=== PATIENT | male | born 1970 | race Caucasian/White ===

== ENCOUNTER → 2017-02-19 | Outpatient (REF) | payer OTHER | LOC: M SFHCPLAZ 10:22 | PROVIDERS: ATTEND Family Medicine | DX: E78.5 Hyperlipidemia, unspecified (principal); R73.03 Prediabetes ==

== ENCOUNTER → 2018-03-13 | Outpatient (REF) | payer OTHER | LOC: M SFHCPLAZ 09:27 | PROVIDERS: ATTEND Family Medicine | DX: R73.03 Prediabetes (principal) ==

== ENCOUNTER → 2019-04-07 | Outpatient (REF) | payer OTHER ==
[2019-04-07 12:29] LABS: CHOLESTEROL RISK RATIO 5.6 (<5)
[2019-04-07 13:57] LABS: HEMOGLOBIN A1c 5.9 %
== END ==
LOC: M SFHCPLAZ 10:23
PROVIDERS: ATTEND Family Medicine
DX: R73.03 Prediabetes (principal); E78.5 Hyperlipidemia, unspecified

== ENCOUNTER → 2019-05-05 | Outpatient (REF) | payer OTHER | LOC: M SFHCPLAZ 09:49 | PROVIDERS: ATTEND Family Medicine | DX: E78.5 Hyperlipidemia, unspecified (principal); E66.9 Obesity, unspecified ==

== ENCOUNTER → 2020-04-04 | Outpatient (REF) | payer OTHER ==
[2020-04-04 11:00] LABS: HEMOGLOBIN A1c 5.3 %
[2020-04-04 11:04] LABS: CHOLESTEROL RISK RATIO 4.064 (<5)
== END ==
LOC: M SFHCPLAZ 08:29
PROVIDERS: ATTEND Family Medicine
DX: E78.2 Mixed hyperlipidemia (principal); R73.03 Prediabetes

== ENCOUNTER → 2022-01-07 | Outpatient (REF) | payer OTHER ==
[2022-01-07 21:22] LABS: APPEARANCE, URINE MANUAL CLEAR (CLEAR); COLOR, URINE MANUAL YELLOW (YELLOW)
[2022-01-07 21:23] LABS: BILIRUBIN, URINE MANUAL NEGATIVE (NEGATIVE); BLOOD URINE MANUAL NEGATIVE (NEGATIVE); GLUCOSE, URINE (UA) MANUAL NEGATIVE (NEGATIVE); KETONE, URINE MANUAL 1+ mg/dL (NEGATIVE); NITRITE, URINE MANUAL NEGATIVE (NEGATIVE); PH,URINE MAN 5.5 UNITS (5.0 - 7.0); PROTEIN, URINE MANUAL NEGATIVE (NEGATIVE); UROBILINOGEN, URINE MANUAL NORMAL (NORMAL)
[2022-01-07 22:39] LABS: LEUKOCYTE ESTERASE, URINE MAN TRACE (NEGATIVE)
[2022-01-07 22:41] LABS: BACTERIA, URINE SMALL AMOUNT; HYALINE CAST, URINE NONE SEEN /lpf (0-1); MUCUS, URINE SMALL AMOUNT (NEGATIVE); SQUAMOUS EPITHELIAL CELL URINE SMALL AMOUNT /hpf (SMALL AMT); WBC, URINE 0-1 /hpf (0-3)
== END ==
LOC: M LAB REF 21:10
PROVIDERS: ATTEND Physician Assistant Medical
DX: N39.0 Urinary tract infection, site not specified (principal)

== ENCOUNTER → 2022-01-28 | Outpatient (REF) | payer OTHER ==
[2022-01-28 16:40] LABS: APPEARANCE, URINE MANUAL CLEAR (CLEAR); COLOR, URINE MANUAL YELLOW (YELLOW); SPECIFIC GRAVITY,URINE MANUAL 1.015 (1.002-1.035)
[2022-01-28 16:47] LABS: BILIRUBIN, URINE MANUAL NEGATIVE (NEGATIVE); BLOOD URINE MANUAL NEGATIVE (NEGATIVE); GLUCOSE, URINE (UA) MANUAL NEGATIVE (NEGATIVE); KETONE, URINE MANUAL NEGATIVE (NEGATIVE); LEUKOCYTE ESTERASE, URINE MAN NEGATIVE (NEGATIVE); NITRITE, URINE MANUAL NEGATIVE (NEGATIVE); PROTEIN, URINE MANUAL NEGATIVE (NEGATIVE); UROBILINOGEN, URINE MANUAL NORMAL (NORMAL)
== END ==
LOC: M LAB REF 16:15
PROVIDERS: ATTEND Physician Assistant Medical
DX: N39.0 Urinary tract infection, site not specified (principal)

== ENCOUNTER → 2022-03-05 | Outpatient (REF) | payer OTHER ==
[2022-03-05 18:35] LABS: APPEARANCE, URINE MANUAL CLEAR (CLEAR); COLOR, URINE MANUAL YELLOW (YELLOW)
[2022-03-05 18:37] LABS: BILIRUBIN, URINE MANUAL NEGATIVE (NEGATIVE); BLOOD URINE MANUAL NEGATIVE (NEGATIVE); GLUCOSE, URINE (UA) MANUAL NEGATIVE (NEGATIVE); KETONE, URINE MANUAL NEGATIVE (NEGATIVE); LEUKOCYTE ESTERASE, URINE MAN NEGATIVE (NEGATIVE); NITRITE, URINE MANUAL NEGATIVE (NEGATIVE); PROTEIN, URINE MANUAL NEGATIVE (NEGATIVE); UROBILINOGEN, URINE MANUAL NORMAL (NORMAL)
== END ==
LOC: M SFHCPLAZ 17:03
PROVIDERS: ATTEND Student in an Organized Health Care Education/Training Program
DX: R30.0 Dysuria (principal)

== ENCOUNTER → 2022-03-05 | Outpatient (REF) | payer OTHER | LOC: M SFHCPLAZ 19:12 | PROVIDERS: ATTEND Family Medicine | DX: E78.5 Hyperlipidemia, unspecified (principal); R30.0 Dysuria; Z53.9 Procedure and treatment not carried out, unspecified reason ==

== ENCOUNTER → 2022-11-07 | Outpatient (REF) | payer OTHER | LOC: M SFHCPLAZ 15:33 | PROVIDERS: ATTEND Student in an Organized Health Care Education/Training Program | DX: Z53.9 Procedure and treatment not carried out, unspecified reason (principal) ==

== ENCOUNTER → 2023-10-21 | Outpatient (CLI) | payer OTHER ==
[2023-10-21 12:42] LABS: BASO % 0.5 % (0.0-1.0); EOS % 0.4 % (0.0-3.0); HEMATOCRIT 44.6 % (42.0-52.0); HEMOGLOBIN 15.7 g/dl (13.5-17.5); LYMPH # 1.3 10^3/uL (1.5-5.0); LYMPH % 22.5 % (24.0-44.0); MEAN CORPUSCULAR HEMOGLOBIN 34.1 pg (27.0-33.0); MEAN CORPUSCULAR HGB CONC 35.2 g/dl (32.0-36.5); MONO # 0.4 10^3/uL (0.0-0.8); MONO % 6.6 % (2.0-8.0); NEUTROPHILS # 3.9 10^3/uL (1.5-8.5); NEUTROPHILS % 69.8 % (36.0-66.0); PLATELET COUNT, AUTOMATED 169 10^3/uL (150-450); WHITE BLOOD COUNT 5.6 10^3/uL (4.0-10.0)
[2023-10-21 12:48] LABS: ALBUMIN 4.4 G/DL (3.2-5.2); ALKALINE PHOSPHATASE 78 U/L (46-116); ALT/SGPT 41 U/L (7.0-40); AST/SGOT 27 U/L (<34); BILIRUBIN,TOTAL 0.6 MG/DL (0.3-1.2); BLOOD UREA NITROGEN 12 MG/DL (9-23); CALCIUM LEVEL 9.8 MG/DL (8.5-10.1); CARBON DIOXIDE LEVEL 30 MMOL/L (20-31); CHLORIDE LEVEL 104 MMOL/L (98-107); CHOLESTEROL LEVEL 210 MG/DL (<200); CHOLESTEROL RISK RATIO 2.87 (<5); CREATININE FOR GFR 0.89 MG/DL (0.70-1.30); GLOMERULAR FILTRATION RATE > 60.0 (>56); GLUCOSE, FASTING 103 MG/DL (60-100); LDL CHOLESTEROL 118.2 MG/DL (<100); POTASSIUM SERUM 4.3 MMOL/L (3.5-5.1); SODIUM LEVEL 139 MMOL/L (136-145); TOTAL PROTEIN 7.5 G/DL (5.7-8.2); TRIGLYCERIDES LEVEL 94 MG/DL (<150)
[2023-10-21 12:50] LABS: FREE T4 1.14 NG/DL (0.89-1.76); THYROID STIMULATING HORMONE 1.568 uIU/ML (0.55-4.78)
[2023-10-21 13:07] LABS: HEMOGLOBIN A1c 5.2 % (4.0-6.0)
[2023-10-21 13:18] LABS: CREATININE, URINE 246.5 MG/DL; MAU/CREAT RATIO 7.3 MCG/MG (0.0-30.0)
== END ==
LOC: M PLALAB 09:32
PROVIDERS: ATTEND Student in an Organized Health Care Education/Training Program
DX: Z00.00 Encounter for general adult medical examination without abnormal findings (principal); R73.03 Prediabetes; R03.0 Elevated blood-pressure reading, without diagnosis of hypertension; E78.5 Hyperlipidemia, unspecified; F41.9 Anxiety disorder, unspecified; Z12.11 Encounter for screening for malignant neoplasm of colon

== ENCOUNTER → 2024-04-29 | Outpatient (REF) | payer OTHER | LOC: M SFHCPLAZ 17:33 | PROVIDERS: ATTEND Family Medicine | DX: L72.0 Epidermal cyst (principal) ==

== ENCOUNTER 2024-12-13 15:49 | Inpatient (IN) | payer OTHER ==
[2024-12-13] MEDS: NS (Normal Saline) 0.9% 1,000 ML IV ONE (16:39)
[2024-12-13 17:10] LABS: BASO # 0.0 10^3/uL (0.0-0.2); BASO % 0.2 % (0.0-1.0); EOS # 0.0 10^3/uL (0.0-0.5); EOS % 0.0 % (0.0-3.0); LYMPH # 0.3 10^3/uL (1.5-5.0); LYMPH % 2.6 % (24.0-44.0); MONO # 0.4 10^3/uL (0.0-0.8); MONO % 4.1 % (2.0-8.0); NEUTROPHILS # 10.1 10^3/uL (1.5-8.5); NEUTROPHILS % 92.8 % (36.0-66.0); PLATELET COUNT, AUTOMATED 124 10^3/uL (150-450)
[2024-12-13 17:19] LABS: CALCIUM LEVEL 9.3 MG/DL (8.5-10.1); CARBON DIOXIDE LEVEL 19 MMOL/L (20-31); CHLORIDE LEVEL 93 MMOL/L (98-107); CK-MB VALUE MASS 1.1 NG/ML (<3.6); CPK CREATINE PHOSPHOKINASE 102 U/L (46-171); CREATININE FOR GFR 0.69 MG/DL (0.70-1.30); GLOMERULAR FILTRATION RATE > 90.0 (>56); MB/CK RELATIVE INDEX 1.07 (< OR =4); POTASSIUM SERUM 3.5 MMOL/L (3.5-5.1); SODIUM LEVEL 132 MMOL/L (136-145)
[2024-12-13] MEDS: ONDANSETRON 4MG 2ML VIAL IV STA (17:23)
[2024-12-13 17:24] LABS: ETHYL ALCOHOL (ETHANOL) < 0.003 % (0.000-0.010)
[2024-12-13] MEDS ORDERED: ATOR1TAB19 PO (17:24)
[2024-12-13] MEDS ORDERED: ZOLO100T PO (17:24)
[2024-12-13] MEDS ORDERED: PANT20TA6 PO (17:24)
[2024-12-13 17:25] LABS: ALT/SGPT 76 U/L (7.0-40); AST/SGOT 104 U/L (<34); MAGNESIUM LEVEL 1.4 MG/DL (1.8-2.4); SALICYLATE LEVEL < 3.0 MG/DL (<30)
[2024-12-13 17:27] LABS: ETHYL ALCOHOL (ETHANOL) < 0.003 % (0.000-0.010)
[2024-12-13 17:43] LABS: AMPHETAMINES LEVEL URINE NEGATIVE (NEGATIVE); BARBITURATES URINE NEGATIVE (NEGATIVE); BENZODIAZEPINES URINE NEGATIVE (NEGATIVE); CANNABINOIDS URINE NEGATIVE (NEGATIVE); COCAINE METABOLITE URINE NEGATIVE (NEGATIVE); METHADONE URINE NEGATIVE (NEGATIVE); OPIATES URINE NEGATIVE (NEGATIVE); PHENCYCLIDINE URINE NEGATIVE (NEGATIVE)
[2024-12-13] MEDS: MAG SULF 1GM/100ML (MAG RUN) 1 GM in IV 1 EA IV ONE (18:04)
[2024-12-13] MEDS ORDERED: ISOVUE-370 76% 100 ML VIAL As Ordered ONE (18:08)
[2024-12-13] MEDS ORDERED: DEXTROSE 50% 50 ML SYRINGE As Ordered ONE (18:21)
[2024-12-13 18:40] LABS: CK-MB VALUE MASS 1.2 NG/ML (<3.6)
[2024-12-13 18:50] LABS: CPK CREATINE PHOSPHOKINASE 96.0 U/L (46-171); MB/CK RELATIVE INDEX 1.25 (< OR =4)
[2024-12-13] MEDS ORDERED: ECOT81TA5 PO (19:29)
[2024-12-13] MEDS ORDERED: HOME MED LIST COMPLETE! XX SCH (19:30)
[2024-12-13 20:20] LABS: INR 0.89
[2024-12-13 20:33] LABS: VITAMIN B12 LEVEL 497.0 PG/ML (211-911)
[2024-12-13] MEDS: LR 1,000 ML IV SCH (20:46)
[2024-12-13] MEDS: THIAMINE 100 MG TAB PO SCH (20:47)
[2024-12-13] MEDS: PANTOPRAZOLE 40MG VIAL IV SCH (20:47)
[2024-12-13] MEDS: MAG SULF 1GM/100ML (MAG RUN) 1 GM in IV 1 EA IV SCH (20:48)
[2024-12-13] MEDS ORDERED: THIAMINE 100 MG TAB PO SCH (21:00)
[2024-12-13 23:55] VITALS: BP 163/100; TEMP 97.2; O2SAT 96
[2024-12-14] VITALS (15 sets, daily range): BP systolic 137–170; BP diastolic 92–100; TEMP 97.2–98.6; O2SAT 96–98
[2024-12-14] MEDS: OXAZEPAM 15MG CAP PO SCH (00:24)
[2024-12-14] MEDS: SUCRALFATE SUSP 1GM/10ML UD PO SCH (00:24)
[2024-12-14 06:01] LABS: PLATELET COUNT, AUTOMATED 102 10^3/uL (150-450)
[2024-12-14 06:30] LABS: ALT/SGPT 52 U/L (7.0-40); AST/SGOT 63 U/L (<34); CALCIUM LEVEL 8.7 MG/DL (8.5-10.1); CARBON DIOXIDE LEVEL 27 MMOL/L (20-31); CHLORIDE LEVEL 100 MMOL/L (98-107); CREATININE FOR GFR 0.72 MG/DL (0.70-1.30); GLOMERULAR FILTRATION RATE > 90.0 (>56); MAGNESIUM LEVEL 2.4 MG/DL (1.8-2.4); POTASSIUM SERUM 3.6 MMOL/L (3.5-5.1); SODIUM LEVEL 137 MMOL/L (136-145)
[2024-12-14] MEDS ORDERED: FOLIC ACID 1 MG TAB PO SCH (09:00)
[2024-12-14] MEDS ORDERED: MULTIVITAMINS/MINERALS THERAP 1 TAB PO SCH (09:00)
[2024-12-14] MEDS ORDERED: CLON0.2T PO (10:00)
[2024-12-14] MEDS ORDERED: CHLO25CA10 PO (10:10)
[2024-12-14] MEDS: ENOXAPARIN 40 MG/0.4 ML SYRINGE (J1650 PER 10MG) SC SCH (10:32)
[2024-12-14] MEDS: MULTIVITAMINS/MINERALS THERAP 1 TAB PO SCH (10:34)
[2024-12-14] MEDS: FOLIC ACID 1 MG TAB PO SCH (10:34)
[2024-12-14] MEDS: SERTRALINE 100 MG TAB PO SCH (10:34)
[2024-12-14] MEDS: PANTOPRAZOLE 40MG TAB PO SCH (10:34)
[2024-12-14] MEDS: chlordiazePOXIDE 25 MG CAP PO SCH (12:33)
[2024-12-14] MEDS: HYDROMORPHONE HCL 0.5 MG/0.5 ML SYRINGE IV ONE (14:03)
[2024-12-14] MEDS: ACETAMINOPHEN 500 MG TAB PO ONE (14:49)
[2024-12-14] MEDS: METOPROLOL 5 MG/5 ML VIAL IV SCH (14:49)
[2024-12-14] MEDS: KETOROLAC 30 MG/ML 1 ML VIAL IV ONE (14:49)
[2024-12-15] VITALS (8 sets, daily range): BP systolic 131–151; BP diastolic 81–95; TEMP 97–98.5; O2SAT 95–98
[2024-12-15] MEDS ORDERED: chlordiazePOXIDE 25 MG CAP PO SCH (14:00)
[2024-12-15] MEDS: ATENOLOL 12.5 MG PER 1/2 TABLET PO ONE (16:11)
[2024-12-15] MEDS: chlordiazePOXIDE 25 MG CAP PO ONE (20:46)
[2024-12-16 00:33] VITALS: BP 165/110; TEMP 97; O2SAT 96
[2024-12-16 01:22] VITALS: BP 155/97; TEMP 97.5; O2SAT 96
[2024-12-16 05:13] VITALS: BP 129/90; TEMP 97.3; O2SAT 95
[2024-12-16 08:00] VITALS: BP 132/89; TEMP 97.2; O2SAT 96
[2024-12-16] MEDS ORDERED: chlordiazePOXIDE 25 MG CAP PO SCH (09:00)
[2024-12-16 10:05] LABS: PLATELET COUNT, AUTOMATED 118 10^3/uL (150-450)
[2024-12-16] MEDS ORDERED: ATEN25TA PO (10:21)
[2024-12-16 11:44] VITALS: BP 158/98
[2024-12-16] MEDS ORDERED: chlordiazePOXIDE 25 MG CAP PO ONE (21:00)
[2024-12-17] MEDS ORDERED: chlordiazePOXIDE 25 MG CAP PO ONE (21:00)
== END 2024-12-16 11:46 | disposition home or self-care (01) | DRG 775 ==
LOC: M ED 15:49 → M ED INP 19:13 → M PCU 23:55 → M MSPAV 12-16 01:18
PROVIDERS: ADMIT Internal Medicine; ATTEND General Practice
DX: F10.239 Alcohol dependence with withdrawal, unspecified (principal); E87.20 Acidosis, unspecified; E88.89 Other specified metabolic disorders; D69.59 Other secondary thrombocytopenia; E83.42 Hypomagnesemia; K70.9 Alcoholic liver disease, unspecified; E78.5 Hyperlipidemia, unspecified; E87.1 Hypo-osmolality and hyponatremia; I49.3 Ventricular premature depolarization; K21.9 Gastro-esophageal reflux disease without esophagitis; R00.0 Tachycardia, unspecified; R74.01 Elevation of levels of liver transaminase levels; Z79.82 Long term (current) use of aspirin; Z79.899 Other long term (current) drug therapy

== ENCOUNTER → 2025-03-17 | Outpatient (CLI) | payer OTHER ==
[~2025-03-17] MED LIST: ATEN25TA PO; ATOR1TAB19 PO; CHLO25CA10 PO; CLON0.2T PO; ECOT81TA5 PO; PANT20TA6 PO; ZOLO100T PO
[2025-03-17 13:32] LABS: PLATELET COUNT, AUTOMATED 197 10^3/uL (150-450)
[2025-03-17 13:38] LABS: ALT/SGPT 14 U/L (7.0-40); AST/SGOT 16 U/L (<34); CALCIUM LEVEL 9.1 MG/DL (8.5-10.1); CARBON DIOXIDE LEVEL 32 MMOL/L (20-31); CHLORIDE LEVEL 102 MMOL/L (98-107); CHOLESTEROL LEVEL 179 MG/DL (<200); CHOLESTEROL RISK RATIO 3.60 (<5); CREATININE FOR GFR 0.92 MG/DL (0.70-1.30); GLOMERULAR FILTRATION RATE > 90.0 (>56); LDL CHOLESTEROL 104.3 MG/DL (<100); MAGNESIUM LEVEL 1.9 MG/DL (1.8-2.4); NON-HDL-C 129.3 MG/DL; POTASSIUM SERUM 4.2 MMOL/L (3.5-5.1); SODIUM LEVEL 140 MMOL/L (136-145); TRIGLYCERIDES LEVEL 125 MG/DL (<150)
[2025-03-17 14:04] LABS: ESTIMATED AVERAGE GLUCOSE 103.0 MG/DL (60-110)
== END ==
LOC: M PLALAB 10:36
DX: K70.9 Alcoholic liver disease, unspecified (principal); E83.42 Hypomagnesemia